=== PATIENT | male | born 2000 | race Caucasian/White ===

== ENCOUNTER 2023-05-03 22:18 | Emergency (ER) | payer OTHER, BC ==
[~2023-05-03] VITALS: Ht 180.3 cm; Wt 90.7 kg
[2023-05-03 22:53] VITALS: BP 130/94
== END 2023-05-04 00:35 | disposition home or self-care (01) ==
LOC: ER 22:18
DX: S00.83XA Contusion of other part of head, initial encounter (principal); W22.8XXA Striking against or struck by other objects, initial encounter
CPT/HCPCS: 99283